=== PATIENT | female | born 1970 | race Caucasian/White ===

== ENCOUNTER 2017-09-20 10:55 | Observation (INO) | payer OTHER ==
[~2017-09-20] VITALS: Ht 162.6 cm; Wt 50.0 kg
[~2017-09-20 10:55] MED LIST: AMBIEN5 MG PO; Ativan PO; CARAFATE1 GM PO; Motrin PO; OxyCONTIN PO; Percocet 5/325,Endoc PO; Xanax PO
[2017-09-20 13:04] LABS: APPEARANCE SL.HAZY ((CLEAR)); BILIRUBIN NEGATIVE; BLOOD MODERATE; COLOR YELLOW ((YELLOW)); GLUCOSE (STRIP) NEGATIVE; KETONES 20; LEUKOCYTES NEGATIVE; NITRITE NEGATIVE; PROTEIN (STRIP) 100; SPECIFIC GRAVITY 1.023 (1.000-1.030); UROBILINOGEN 0.2 MG/DL (0.2-1.0)
[2017-09-20 13:06] LABS: BASOPHIL (%) 0.3 % (0-1); EOSINOPHIL (%) 0.4 % (0-5); EOSINOPHIL COUNT 0.1 K/uL (0-0.3); HEMATOCRIT 39.3 % (36.0-46.0); HEMOGLOBIN 14.1 G/DL (11.9-15.5); IMMATURE GRANULOCYTE (%) 0.4 % (0.0-0.7); LYMPHOCYTE COUNT 2.1 K/uL (1.0-2.8); MCH 33.8 PG (29.0-34.0); MCHC 35.9 G/DL (30.0-36.0); MCV 94.2 FL (83-99); MONOCYTE (%) 8.5 % (3-12); MONOCYTE COUNT 1.1 K/uL (0-0.8); NEUTROPHIL (%) 74.4 % (45-76); PLATELET COUNT 342 K/uL (156-360); RBC DIS.WIDTH-CV 12.4 % (11.8-14.6); RBC DIS.WIDTH-SD 42.8 % (39-53); RED BLOOD COUNT 4.17 M/uL (3.80-5.20); WHITE BLOOD COUNT 13.4 K/uL (4.1-10.2)
[2017-09-20 13:09] LABS: BACTERIA RARE /HPF; EPITHELIAL CELLS RARE /HPF; HYALINE CASTS 0-5 /LPF; MUCUS TRACE /LPF; RED BLOOD CELLS 0-5 /HPF (0-5); UCUL ADDED? YES; WHITE BLOOD CELLS 20-30 /HPF (0-5)
[2017-09-20 13:13] LABS: AMPHETAMINE NEGATIVE (500 ng/mL); BARBITURATES NEGATIVE (200 ng/mL); BENZODIAZEPINES PRESUMPTIVE POSITIVE (150 ng/mL); BUPRENORPHINE NEGATIVE (10 ng/mL); COCAINE PRESUMPTIVE POSITIVE (150 ng/mL); METHADONE NEGATIVE (200 ng/mL); METHAMPHETAMINE NEGATIVE (500 ng/mL); OPIATES (MORPHINE) NEGATIVE (100 ng/mL); OXYCODONE PRESUMPTIVE POSITIVE (100 ng/mL); PHENCYCLIDINE NEGATIVE (25 ng/mL); PROPOXYPHENE NEGATIVE (300 ng/mL); THC CANNABINOIDS NEGATIVE (50 ng/mL); TRICYCLIC ANTIDEPRESSANTS NEGATIVE (300 ng/mL)
[2017-09-20 13:44] LABS: AMYLASE 45 IU/L (1-118); CHLORIDE 102 MEQ/L (99-109); GFR ESTIMATE (CALCULATED) > 59 mL/min/; GLUCOSE 78 mg/dL (70-99); LIPASE 30 U/L (1.0-51.0); POTASSIUM 3.7 MEQ/L (3.7-5.4); SERUM ETHYL ALCOHOL < 10 mg/dL; SODIUM 138 MEQ/L (136-147); UREA NITROGEN (BUN) 35 mg/dL (9-23)
[2017-09-20 14:00] LABS: QUANTITATIVE HCG < 4.0 MIU/ML
[2017-09-20 14:42] LABS: BENZODIAZEPINES, URINE SCREEN POSITIVE (200 ng/mL)
[2017-09-20] MEDS ORDERED: NEURONTIN100 MG PO (16:10)
[2017-09-20] MEDS ORDERED: ATARAX,VISTARIL25 MG PO (16:11)
[2017-09-20] MEDS ORDERED: MORPHABOND ER15 MG PO (16:12)
[2017-09-20] MEDS ORDERED: PREMARIN VAGI42.5 GM VG (16:14)
[2017-09-20] MEDS ORDERED: SPIRIVA18 MCG IH (16:14)
[2017-09-20] MEDS ORDERED: PROAIR HFA8.5 GM IH (16:14)
[2017-09-20] MEDS ORDERED: XANAX0.25 MG PO (16:15)
[2017-09-20] MEDS ORDERED: REMERON15 M2 PO (16:16)
[2017-09-20] MEDS ORDERED: CATAPRES0.1 MG PO (16:16)
[2017-09-20] MEDS ORDERED: COMBIVENT RESPIM4 GM IH (16:17)
[2017-09-20] MEDS ORDERED: DURAGESIC12 MCG TD (16:18)
[2017-09-20] MEDS ORDERED: OXYCODONE HCL15 MG PO (16:25)
[2017-09-20 18:37] VITALS: BP 124/76
[2017-09-20 23:24] VITALS: BP 100/53
[2017-09-21 03:36] VITALS: BP 107/57
[2017-09-21 07:12] LABS: ALBUMIN 3.7 G/DL (3.2-4.8); ALKALINE PHOSPHATASE 111 IU/L (3-129); ALT (GPT) 24 IU/L (3-49); AST (GOT) 28 IU/L (2-34); CHLORIDE 104 MEQ/L (99-109); CREATININE 0.6 MG/DL (0.6-1.3); GFR ESTIMATE (CALCULATED) > 59 mL/min/; GLUCOSE 93 mg/dL (70-99); SODIUM 136 MEQ/L (136-147); TOTAL BILIRUBIN 0.8 MG/DL (0.0-1.0); TOTAL PROTEIN 5.9 G/DL (6.4-8.3); UREA NITROGEN (BUN) 17 mg/dL (9-23)
[2017-09-21 07:40] LABS: HEMATOCRIT 33.3 % (36.0-46.0); MCH 33.2 PG (29.0-34.0); MCHC 34.8 G/DL (30.0-36.0); MCV 95.4 FL (83-99); PLATELET COUNT 288 K/uL (156-360); RBC DIS.WIDTH-CV 12.8 % (11.8-14.6); RBC DIS.WIDTH-SD 44.5 % (39-53); RED BLOOD COUNT 3.49 M/uL (3.80-5.20); WHITE BLOOD COUNT 9.8 K/uL (4.1-10.2)
[2017-09-21 07:42] LABS: HEMOGLOBIN 11.6 G/DL (11.9-15.5)
[2017-09-21 08:31] VITALS: BP 100/59
[2017-09-21 15:53] VITALS: BP 108/60
[2017-09-21 20:25] VITALS: BP 128/65
[2017-09-21 23:55] VITALS: BP 92/52
[2017-09-22 04:00] VITALS: BP 91/57
[2017-09-22 07:35] VITALS: BP 90/53
[2017-09-22 11:58] VITALS: BP 99/50
[2017-09-22 15:48] VITALS: BP 103/54
== END 2017-09-22 17:46 | disposition home or self-care (01) ==
LOC: EME → TRA 10:55 → EME 10:55 → EDBD 10:55 → 3EAST 15:59 → EDOF 15:59 → CANRESERV 16:11 → ENRESERV 16:11 → 3EAST 17:57
PROVIDERS: Emergency Medicine; Student in an Organized Health Care Education/Training Program
DX: S27.0XXA Traumatic pneumothorax, initial encounter (principal); G89.11 Acute pain due to trauma; S50.02XA Contusion of left elbow, initial encounter; S80.12XA Contusion of left lower leg, initial encounter; S80.11XA Contusion of right lower leg, initial encounter; G89.29 Other chronic pain; M54.5 Low back pain; Z79.891 Long term (current) use of opiate analgesic; F43.10 Post-traumatic stress disorder, unspecified; F32.9 Major depressive disorder, single episode, unspecified; F17.200 Nicotine dependence, unspecified, uncomplicated; Z88.0 Allergy status to penicillin; Z88.6 Allergy status to analgesic agent; W10.9XXA Fall (on) (from) unspecified stairs and steps, initial encounter
CPT/HCPCS: 71046; 71260; 72125; 80048; 80053; 81003; 82150; 83690; 84702; 84999; 85025; 85027; 86850; 86900; 86901; 87086; 94640; 94799; 99281; 99285; G0378; G0480; G8978 GP CJ; G8979 GP CH; G8980 CJ; G8987 GO CI; G8988 GO CH; G8989 GO CI; J2060; J7120